=== PATIENT | male | born 1955 | race African-American/Black ===

== ENCOUNTER 2017-05-13 10:43 | Emergency (ER) | payer BC ==
[~2017-05-13] VITALS: Ht 182.9 cm; Wt 88.5 kg
--- NOTE | ~2017-05-13 | EKG ---
[address] [address] ELECTROCARDIOGRAM REPORT Name: CHICHI CHAPMAN [id number] Admission: 05/13/17 Attend Phys: Discharge: 05/13/17 Date of : 51 Report #: [id number] THIS REPORT FOR: //name// [facility] ED Test Date: 2017-05-13 Test Time: 12:42:18 Pat Name: CHICHI CHAPMAN Department: Room: Gender: Supervisor Tower: [place] : 1955 Requested By: Joaquin Corona Order Number: [id number] MD: Panfilo Tay Measurements Intervals [place] Rate: 61 P: 32 RI: 161 QRS: 19 QRSD: 88 T: 17 QT: 422 QTc: 425 Interpretive Statements Sinus rhythm No significant abnormality No previous ECG available for comparison Electronically Signed On 05-15-2017 7:28:09 [employer] by Panfilo Tay [email or web address] <ELECTRONICALLY SIGNED> By: Panfilo Tay MD, [facility] 05/15/17 0728 1242 1242 Panfilo Tay MD, FACC /EPI
[2017-05-13 11:40] LABS: ABSOLUTE NEUTROPHILS 3.7 thou/uL (1.4-8.2); BASOPHILS 0.6 % (0.0-2.0); EOSINOPHILS 0.6 % (0.0-3.0); HEMATOCRIT 43.2 % (42.0-52.0); HEMOGLOBIN 14.5 gm/dL (14.0-18.0); LYMPHOCYTES 19.4 % (24.0-44.0); MCH 32.9 pg (26.0-34.0); MCHC 33.5 g/dL (28.0-37.0); MCV 98.4 fL (80.0-100.0); MONOCYTES 9.8 % (1.0-8.0); PLATELET COUNT 150 thou/uL (150-400); POLYS 69.6 % (36.0-66.0); RBC 4.39 mil/uL (4.50-6.00); RDW 13.1 % (10.5-14.5); WBC 5.3 thou/uL (4.0-11.0)
[2017-05-13 11:45] LABS: CALCIUM 9.1 mg/dL (8.5-10.1); CREATININE 1.4 mg/dL (0.7-1.3); POTASSIUM 3.7 mmol/L (3.5-5.1)
[2017-05-13 12:52] LABS: ALBUMIN 3.9 g/dL (3.4-5.0); DIRECT BILIRUBIN 0.1 mg/dL (<0.1-0.3); TOTAL BILIRUBIN 0.8 mg/dL (<0.1-1.0); TOTAL PROTEIN 7.4 g/dL (6.4-8.2)
[2017-05-13] MEDS ORDERED: ONDANSETRON HCL4 M2 PO (13:58)
[2017-05-13] MEDS ORDERED: VALIUM5 MG PO (13:58)
== END 2017-05-13 14:57 | disposition home or self-care (01) ==
LOC: ER 10:43
PROVIDERS: Nurse Practitioner
DX: S09.11XA Strain of muscle and tendon of head, initial encounter (principal); R11.0 Nausea; R42 Dizziness and giddiness; X58.XXXA Exposure to other specified factors, initial encounter; Y93.89 Activity, other specified; Y92.89 Other specified places as the place of occurrence of the external cause; Y99.8 Other external cause status